=== PATIENT | male | born 1990 | race African-American/Black ===

== ENCOUNTER 2016-10-02 12:05 | Emergency (ER) | payer SELFPAY ==
[2016-10-02] MEDS ORDERED: LIDOCAINE 2% VISC 15 ML UDC ONE (12:49)
[2016-10-02] MEDS ORDERED: KETOROLAC 60 MG/2 ML VIAL IM ONE (12:49)
== END 2016-10-02 13:20 | disposition home or self-care (01) ==
LOC: FASTR 12:05
DX: K02.9 Dental caries, unspecified (principal)
CPT/HCPCS: 96372